=== PATIENT | male | born 1990 | race African-American/Black ===

== ENCOUNTER 2022-02-11 12:20 | Emergency (ER) | payer SELFPAY ==
[~2022-02-11] VITALS: Ht 172.7 cm; Wt 73.0 kg
[2022-02-11] MEDS ORDERED: KETOROLAC 30MG/ML VIAL IM ONE (14:15)
[2022-02-11 15:06] VITALS: BP 132/73
[2022-02-11] MEDS ORDERED: IBUP-2029 PO (16:01)
== END 2022-02-11 16:31 | disposition home or self-care (01) ==
LOC: ER 12:20
DX: M79.18 Myalgia, other site (principal)
CPT/HCPCS: 71101; 96372; 99283; J1885

== ENCOUNTER 2022-04-03 08:38 | Emergency (ER) | payer MEDICAID ==
[~2022-04-03] VITALS: Ht 172.7 cm; Wt 78.0 kg
[~2022-04-03 08:38] MED LIST: IBUP-2029 PO
[2022-04-03] MEDS ORDERED: ONDANSETRON HCL 4MG/2ML INJ IV STA (09:09)
[2022-04-03] MEDS ORDERED: MORPHINE SULFATE 4 MG/ML CPJ (NOT FOR IM USE) IV STA (09:09)
[2022-04-03] MEDS ORDERED: SODIUM CHLORIDE 0.9% 1,000 ML IV ONE (09:15)
[2022-04-03] MEDS ORDERED: PANTOPRAZOLE SODIUM 40 MG/VIAL IV ONE (09:15)
[2022-04-03] MEDS ORDERED: FAMOTIDINE 20MG/2ML VIAL IV ONE (09:15)
[2022-04-03 09:34] LABS: EOSINOPHILS % 0.6 % (0.0-5.0); HEMOGLOBIN. 15.8 g/dL (14.0-18.0); LYMPHOCYTES % 17.9 % (20.0-50.0); MEAN CORPUSCULAR HEMOGLOBIN 31.2 pg (28.0-32.0); MEAN PLATELET VOLUME 10.5 fl (7.4-10.4); MONOCYTES % 8.4 % (2.0-8.0); NEUTROPHILS % 72.1 % (40.0-76.0); PLATELET 179 x1000/uL (130-400); RED BLOOD CELL COUNT 5.06 mill/uL (4.7-6.1); RED CELL DISTRIBUTION WIDTH 13.5 % (11.6-14.6)
[2022-04-03 09:37] LABS: CHLORIDE 99 mEq/L (98-107)
[2022-04-03 09:39] LABS: INR 1.1; PROTHROMBIN TIME 12.1 sec (9.6-11.0)
[2022-04-03 09:45] LABS: ETHANOL BLOOD < 10 mg/dL
[2022-04-03] MEDS ORDERED: CHLORDIAZEPOXIDE 25MG CAPSULE PO ONE (10:00)
[2022-04-03 10:13] LABS: CLARITY URINE CLEAR (CLEAR); COLOR URINE DARK YELLOW (YELLOW); KETONES URINE 4+ (NEGATIVE); LEUKOCYTE ESTERASE URINE TRACE (NEGATIVE); NITRITE URINE NEGATIVE (NEGATIVE); OCCULT BLOOD URINE NEGATIVE (NEGATIVE); PH URINE >=9.0 (4.5-8.0); PROTEIN URINE 2+ (NEGATIVE); SPECIFIC GRAVITY URINE 1.036 (1.005-1.030)
[2022-04-03 10:28] LABS: *AMPHETAMINES SCREEN URINE NEGATIVE (NEGATIVE); *BARBITURATES SCREEN URINE NEGATIVE (NEGATIVE); *BENZODIAZEPINES SCREEN URINE NEGATIVE (NEGATIVE); *COCAINE SCREEN URINE NEGATIVE (NEGATIVE); CANNABINOID URINE SCREEN PRESUMTIVE POSITIVE (NEGATIVE); METHADONE URINE SCREEN NEGATIVE (NEGATIVE); OPIATES URINE SCREEN NEGATIVE (NEGATIVE); PHENCYCLIDINE URINE SCREEN NEGATIVE (NEGATIVE)
[2022-04-03] MEDS ORDERED: CHLORDIAZEPOXIDE 25MG CAPSULE PO NR (12:00)
[2022-04-03] MEDS ORDERED: L25 MT (12:49)
[2022-04-03] MEDS ORDERED: FAMO40TA70 MT (12:49)
[2022-04-03] MEDS ORDERED: ONDANSETRON HCL 4MG/2ML INJ IV ONE (13:00)
[2022-04-03] MEDS ORDERED: MORPHINE SULFATE 4 MG/ML CPJ (NOT FOR IM USE) IV ONE (13:00)
[2022-04-03] MEDS ORDERED: PROCHLORPERAZINE 10MG/2ML VIAL IV ONE (14:00)
[2022-04-03 15:25] VITALS: BP 150/104
== END 2022-04-03 15:27 | disposition home or self-care (01) ==
LOC: ER 08:38
DX: K85.20 Alcohol induced acute pancreatitis without necrosis or infection (principal); K76.0 Fatty (change of) liver, not elsewhere classified; F10.10 Alcohol abuse, uncomplicated; F12.10 Cannabis abuse, uncomplicated; Y90.0 Blood alcohol level of less than 20 mg/100 ml; Z20.822 Contact with and (suspected) exposure to COVID-19
CPT/HCPCS: 36415; 71045; 76700; 80053; 80305; 80320; 81003; 83690; 83880; 84484; 85025; 85610; 87426; 93005; 96361; 96374; 96375; 96376; 99285; C9113; C9803; J2270; J2405; J3490; J7030; J0780; G0480

== ENCOUNTER 2022-06-13 14:58 | Emergency (ER) | payer MEDICAID ==
[~2022-06-13] VITALS: Ht 182.9 cm; Wt 77.0 kg
[~2022-06-13 14:58] MED LIST changes: +FAMO40TA70 MT; +L25 MT
[2022-06-13] MEDS ORDERED: VISCOUS LIDOCAINE 2% 15 ML UDC PO STA (18:09)
[2022-06-13] MEDS ORDERED: MAGNESIUM/ALUMINUM HYDROXIDE/SIMETHICONE 30ML UDC PO STA (18:09)
[2022-06-13] MEDS ORDERED: ASPIRIN 325MG EC TABLET PO ONE (18:15)
[2022-06-13 18:43] LABS: CHLORIDE 93 mEq/L (98-107)
[2022-06-13 19:02] LABS: ETHANOL BLOOD < 10 mg/dL
[2022-06-13 19:13] LABS: BASOPHILS % 0.2 % (0.0-2.0); EOSINOPHILS % 0.8 % (0.0-5.0); HEMATOCRIT. 44.9 % (42.0-52.0); HEMOGLOBIN. 15.1 g/dL (14.0-18.0); LYMPHOCYTES % 12.5 % (20.0-50.0); MEAN CORPUSCULAR HEMOGLOBIN 31.5 pg (28.0-32.0); MEAN CORPUSCULAR VOLUME 93.5 fL (80.0-94.0); MEAN PLATELET VOLUME 10.6 fl (7.4-10.4); MONOCYTES % 9.8 % (2.0-8.0); NEUTROPHILS % 76.7 % (40.0-76.0); PLATELET 216 x1000/uL (130-400); RED CELL DISTRIBUTION WIDTH 13.3 % (11.6-14.6)
[2022-06-13 19:55] LABS: CLARITY URINE CLEAR (CLEAR); COLOR URINE ORANGE (YELLOW); KETONES URINE 3+ (NEGATIVE); LEUKOCYTE ESTERASE URINE 1+ (NEGATIVE); NITRITE URINE POSITIVE (NEGATIVE); OCCULT BLOOD URINE NEGATIVE (NEGATIVE); PROTEIN URINE 2+ (NEGATIVE); SPECIFIC GRAVITY URINE 1.037 (1.005-1.030)
[2022-06-13 20:15] LABS: *AMPHETAMINES SCREEN URINE NEGATIVE (NEGATIVE); *BARBITURATES SCREEN URINE NEGATIVE (NEGATIVE); *BENZODIAZEPINES SCREEN URINE NEGATIVE (NEGATIVE); *COCAINE SCREEN URINE NEGATIVE (NEGATIVE); CANNABINOID URINE SCREEN PRESUMTIVE POSITIVE (NEGATIVE); METHADONE URINE SCREEN NEGATIVE (NEGATIVE); OPIATES URINE SCREEN NEGATIVE (NEGATIVE); PHENCYCLIDINE URINE SCREEN NEGATIVE (NEGATIVE)
[2022-06-13] MEDS ORDERED: CEPHALEXIN 250MG CAPSULE PO NR (21:05)
[2022-06-13] MEDS ORDERED: HYDROCODONE/ACETAMINOPHEN 10/325MG TABLET PO NR (21:06)
[2022-06-14 06:05] VITALS: BP 140/78
== END 2022-06-14 10:41 | disposition home or self-care (01) ==
LOC: ER 14:58
DX: R07.89 Other chest pain (principal); F91.8 Other conduct disorders; R45.851 Suicidal ideations; N39.0 Urinary tract infection, site not specified; F12.10 Cannabis abuse, uncomplicated; F10.10 Alcohol abuse, uncomplicated; Y90.0 Blood alcohol level of less than 20 mg/100 ml
CPT/HCPCS: 36415; 71045; 80053; 80305; 80307; 80320; 80329; 81003; 82140; 84443; 84484; 85025; 93005; 99285; G0480

== ENCOUNTER 2024-11-01 11:10 | Emergency (ER) | payer MEDICAID ==
[~2024-11-01] VITALS: Ht 177.8 cm; Wt 78.0 kg
[~2024-11-01 11:10] MED LIST changes: +CHLO25CA11 MT; -L25 MT
[2024-11-01 11:13] VITALS: O2SAT 99
[2024-11-01] MEDS: LORAZEPAM 2MG/ML INJ IM STA (11:43)
[2024-11-01] MEDS: DIPHENHYDRAMINE 50MG/ML VIAL IM STA (11:43)
[2024-11-01] MEDS: HALOPERIDOL LACTATE 5MG/ML VIAL IM STA (11:43)
[2024-11-01 12:40] LABS: BASOPHILS % 0.4 % (0.0-2.0); DIFFERENTIAL COMMENT 0; EOSINOPHILS % 2.5 % (0.0-5.0); HEMATOCRIT. 38.7 % (42.0-52.0); HEMOGLOBIN. 12.6 g/dL (14.0-18.0); MEAN CORPUSCULAR HEMOGLOBIN 29.3 pg (28.0-32.0); MEAN CORPUSCULAR HGB CONC 32.6 g/dL (31.0-37.0); MEAN CORPUSCULAR VOLUME 89.8 fL (80.0-94.0); MEAN PLATELET VOLUME 9.5 fl (7.4-10.4); MONOCYTES % 14.1 % (2.0-8.0); PLATELET 233 x1000/uL (130-400); RED BLOOD CELL COUNT 4.31 mill/uL (4.7-6.1); RED CELL DISTRIBUTION WIDTH 14.3 % (11.6-14.6)
[2024-11-01 12:42] LABS: CHLORIDE 110 mEq/L (98-107); POTASSIUM 3.8 mEq/L (3.5-5.1); SODIUM 146 mEq/L (136-145)
[2024-11-01 12:43] LABS: CALCIUM 8.7 mg/dL (8.7-10.4); CARBON DIOXIDE 26 mEq/L (21-32)
[2024-11-01 12:48] LABS: CREATININE 0.9 mg/dL (0.6-1.3); GLUCOSE 82 mg/dL (70-105); UREA NITROGEN BLOOD 12 mg/dL (9-23)
[2024-11-01 12:49] LABS: ETHANOL BLOOD 146 mg/dL (<10)
[2024-11-02 00:09] LABS: *AMPHETAMINES SCREEN URINE NEGATIVE (NEGATIVE); *BARBITURATES SCREEN URINE NEGATIVE (NEGATIVE); *BENZODIAZEPINES SCREEN URINE NEGATIVE (NEGATIVE); *COCAINE SCREEN URINE PRESUMPTIVE POSITIVE (NEGATIVE)
[2024-11-02 00:10] LABS: CANNABINOID URINE SCREEN PRESUMPTIVE POSITIVE (NEGATIVE); ECSTASY MDMA SCREEN URINE NEGATIVE (NEGATIVE); METHADONE URINE SCREEN NEGATIVE (NEGATIVE); OPIATES URINE SCREEN NEGATIVE (NEGATIVE); PHENCYCLIDINE URINE SCREEN NEGATIVE (NEGATIVE)
[2024-11-02 01:00] LABS: CLARITY URINE CLEAR (CLEAR); COLOR URINE YELLOW (YELLOW); GLUCOSE URINE NEGATIVE (NEGATIVE); PH URINE 7.5 (4.5-8.0); PROTEIN URINE NEGATIVE (NEGATIVE); SPECIFIC GRAVITY URINE 1.015 (1.005-1.030)
[2024-11-02 01:01] LABS: KETONES URINE NEGATIVE (NEGATIVE); LEUKOCYTE ESTERASE URINE NEGATIVE (NEGATIVE); NITRITE URINE NEGATIVE (NEGATIVE); OCCULT BLOOD URINE NEGATIVE (NEGATIVE)
[2024-11-02 01:02] LABS: UROBILINOGEN URINE 0.2 E.U./dL (0.2-1.0)
[2024-11-02] MEDS ORDERED: DIPHENHYDRAMINE 50MG/ML VIAL IM ONE (11:30)
[2024-11-02] MEDS ORDERED: LORAZEPAM 2MG/ML INJ IV ONE (11:30)
[2024-11-02] MEDS ORDERED: HALOPERIDOL LACTATE 5MG/ML VIAL IM ONE (11:30)
[2024-11-02] MEDS: HALOPERIDOL LACTATE 5MG/ML VIAL IM NR (15:30)
[2024-11-02] MEDS: LORAZEPAM 2MG/ML INJ IV NR (15:30)
[2024-11-02] MEDS: DIPHENHYDRAMINE 50MG/ML VIAL IM NR (15:30)
[2024-11-03 10:00] VITALS: BP 139/67; PULSE 72; RESP 18; TEMP 36.7; O2SAT 99
[2024-11-03] MEDS: LORAZEPAM 0.5MG TABLET PO ONE (11:15)
== END 2024-11-03 11:53 | disposition left against medical advice (07) ==
LOC: ER 11:10
DX: R45.851 Suicidal ideations (principal); F12.10 Cannabis abuse, uncomplicated; Z20.822 Contact with and (suspected) exposure to COVID-19
CPT/HCPCS: 80305; 80048; 81003; 80307; 80329; 80320; 85025; 36415; 96372 ×2; 99285; 87426; 96374; J1200 ×2; J1630 ×2; J2060 ×2; G0480